=== PATIENT | female | born 1970 | race American Indian/Alaskan Native ===

== ENCOUNTER 2017-09-21 10:00 | Day surgery (SDC) | payer OTHER ==
[~2017-09-21 10:00] MED LIST: ADRENALIN IV ONE; LACTATED RINGERS 1,000 ML IV SCH; NACL 0.9% 1000 ML IV ONE; VERSED IV NR; XYLOCAINE 1% 20 mL INFILTRATI ONE
[2017-09-21] MEDS ORDERED: ADRENALIN ONE (10:43)
[2017-09-21] MEDS ORDERED: XYLOCAINE 1%/ EPI 1:100,000 INFILTRATI ONE (10:44)
[2017-09-21] MEDS ORDERED: NACL 0.9% 1000 ML 1,000 ML ONE ×2 (10:44→16:04)
[2017-09-21] MEDS ORDERED: ANCEF/STERILE WATER 2 GM/20 ML IV NR (11:00)
[2017-09-21] MEDS ORDERED: DILAUDID ONE (11:41)
[2017-09-21] MEDS ORDERED: SUBLIMAZE ONE (11:41)
[2017-09-21] MEDS ORDERED: DIPRIVAN 10 MG/ML IV ONE (11:41)
[2017-09-21] MEDS ORDERED: XYLOCAINE MPF 2% ONE (11:43)
[2017-09-21] MEDS ORDERED: ZEMURON IV ONE (11:44)
--- NOTE | 2017-09-21 12:00 | Anesthesia Consultation ---
Anesthesia Consult and Med Hx Date of service: 09/21/17 - Airway Anesthetic Teeth Evaluation: Good ROM Head & Neck: Adequate Mental/Hyoid Distance: Adequate Mallampati Class: Class I Intubation Access Assessment: Good - Pulmonary Exam CTA: Yes - Cardiac Exam Cardiac Exam: RRR - Pre-Operative Health Status ASA Pre-Surgery Classification: ASA1 Proposed Anesthetic Plan: General - Pre-Anesthesia Comment Pre-Anesthesia Comments: patient denies any medical problems. - Central Nervous System Hx Psychiatric Problems: No - Other Systems Hx Cancer: No
[2017-09-21] MEDS ORDERED: DEMEROL IV PRN (12:44)
[2017-09-21] MEDS ORDERED: TORADOL IV PRN (12:44)
[2017-09-21] MEDS ORDERED: ZOFRAN IV PRN ×2 (12:44→18:40)
[2017-09-21] MEDS ORDERED: DILAUDID IV PRN (12:44)
--- NOTE | 2017-09-21 12:44 | Anesthesia Consultation ---
Anesthesia Consult and Med Hx Date of service: 09/21/17 - Airway Anesthetic Teeth Evaluation: Good ROM Head & Neck: Adequate Mental/Hyoid Distance: Adequate Mallampati Class: Class I Intubation Access Assessment: Good - Pulmonary Exam CTA: Yes - Cardiac Exam Cardiac Exam: RRR - Pre-Operative Health Status ASA Pre-Surgery Classification: ASA1 Proposed Anesthetic Plan: General - Central Nervous System Hx Psychiatric Problems: No - Other Systems Hx Cancer: No
--- NOTE | 2017-09-21 12:44 | Anesthesia Day of Surgery ---
Anesthesia Day of Surgery - Day of Surgery Patient Examined: Yes Patient H&P Reviewed: Yes Patient is NPO: Yes
[2017-09-21] MEDS ORDERED: LACTATED RINGERS 1,000 ML IV SCH (13:00)
[2017-09-21] MEDS ORDERED: DECADRON ONE (13:26)
[2017-09-21] MEDS ORDERED: NEO SYNEPHRINE/NS Syringe(OR USE) IV ONE (13:44)
[2017-09-21] MEDS ORDERED: TRIPLE ANTIBIOTIC TP ONE (17:52)
[2017-09-21] MEDS ORDERED: ANCEF ONE (17:59)
[2017-09-21] MEDS ORDERED: ZOFRAN ONE (18:10)
[2017-09-21] MEDS: DILAUDID IV PRN ×3 (18:32→19:35)
[2017-09-21] MEDS ORDERED: NORCO 7.5/325 PO PRN (18:39)
--- NOTE | 2017-09-21 18:45 | Short Stay Summary ---
Short Stay Documentation Date of service: 09/21/17 - History H&P: obtained from office Past Medical History: No medical history Past Surgical History: Other (Face lift, Breast augmentation, Gender reassignment surgery) Social history: , lives with family - Allergies and Medications Current Medications: Allergies iodine Allergy (Verified 09/21/17 10:35) Itching PT STATES INTERNAL IODINE ONLY codeine Adverse Reaction (Verified 09/21/17 10:34) Itching Home Medications Medication Instructions Recorded Confirmed Last Taken Type No Known Home Medications [No 09/20/17 09/20/17 Unknown History Reported Home Medications] Active Medications Cefazolin Sodium (Ancef/Sterile Water 2 Gm/20 Ml) 2 gm IV PREOP NR Stop: 09/21/17 23:59 Hydromorphone HCl (Dilaudid) 0.5 mg IV Q10MIN PRN PRN Reason: Pain , Severe (7-10) Lactated Ringer's (Lactated Ringers) 1,000 mls @ 100 mls/hr IV DIRECT GIOVANI Last Admin: 09/21/17 11:05 Dose: 100 mls/hr Lactated Ringer's (Lactated Ringers) 1,000 mls @ 100 mls/hr IV DIRECT GIOVANI Midazolam HCl (Versed) 2 mg IV PREOP NR Stop: 09/21/17 23:59 Last Admin: 09/21/17 11:20 Dose: 2 mg - Physical exam General appearance: no acute distress HEENT: EOMI, Mucous membr. moist/pink, Other (s/p Face lift with chin implant. Swelling and ecchymosis accordingly.) Breasts: deferred Heart: Regular rate Gastrointestinal: normal Female Genitourinary: deferred Rectal Exam: deferred Extremities: no ischemia Neurological: Normal speech - Brief post op/procedure progress note Date of procedure: 09/21/17 Pre-op diagnosis: unacceptable cosmetic appearance Post-op diagnosis: same Anesthesia: GETA Findings: Significant scar tissue of the right side of the face. Surgeon: HOSSEIN BRAGA Estimated blood loss: 50-100ml Pathology: none Condition: stable - Hospital course Hospital course: Uneventful - Disposition Condition at discharge: Stable Disposition: DC-01 TO HOME OR SELFCARE - Discharge Diagnoses (1) Elective procedure for unacceptable cosmetic appearance Status: Acute Short Stay Discharge Plan Follow up with: [facility] [Other] - 7 Days
[2017-09-21 20:52] VITALS: BP 120/75
== END 2017-09-21 20:15 | disposition home or self-care (01) ==
LOC: OR 10:00
PROVIDERS: ATTEND Plastic Surgery
DX: Z41.1 Encounter for cosmetic surgery (principal); Z88.5 Allergy status to narcotic agent; Z91.041 Radiographic dye allergy status; Z79.899 Other long term (current) drug therapy; Z98.890 Other specified postprocedural states
CPT/HCPCS: 15828; J0171; J0690; J1100; J1170; J2250; J2370; J2405; J2704; J3010; J7030; J7120; A6250

== ENCOUNTER 2018-06-29 05:43 | Day surgery (SDC) | payer OTHER ==
[2018-06-29] MEDS ORDERED: LACTATED RINGERS 1,000 ML IV SCH (06:00)
[2018-06-29] MEDS ORDERED: ANCEF/STERILE WATER 2 GM/20 ML 2 GM/20 ML SYRINGE IV NR (06:00)
[2018-06-29] MEDS ORDERED: NACL 0.9% 1000 ML 4,000 ML ONE (06:36)
[2018-06-29] MEDS ORDERED: XYLOCAINE 1% 20 mL ONE (06:36)
[2018-06-29] MEDS ORDERED: XYLOCAINE 1%/ EPI 1:100,000 INFILTRATI ONE ×4 (06:37→09:03)
[2018-06-29] MEDS ORDERED: ADRENALINE P/F ONE (06:37)
[2018-06-29] MEDS ORDERED: DIPRIVAN 10 MG/ML IV ONE ×2 (07:12→07:56)
[2018-06-29] MEDS ORDERED: KETALAR ONE (07:12)
[2018-06-29] MEDS ORDERED: SUBLIMAZE ONE (07:12)
[2018-06-29] MEDS ORDERED: ZOFRAN ONE (07:22)
[2018-06-29] MEDS ORDERED: QUELICIN ONE (07:22)
[2018-06-29] MEDS ORDERED: DECADRON ONE (07:22)
[2018-06-29] MEDS ORDERED: ROBINUL ONE (07:22)
[2018-06-29] MEDS ORDERED: NEO SYNEPHRINE ONE (07:22)
[2018-06-29] MEDS ORDERED: ZEMURON IV ONE ×2 (07:22→12:59)
[2018-06-29] MEDS ORDERED: NEO SYNEPHRINE/NS Syringe(OR USE) IV ONE (07:23)
[2018-06-29] MEDS ORDERED: XYLOCAINE MPF 2% ONE (07:23)
[2018-06-29] MEDS ORDERED: NACL 0.9% 100 ML ONE (07:23)
[2018-06-29] MEDS ORDERED: LACTATED RINGERS 1,000 ML ONE (07:23)
[2018-06-29] MEDS ORDERED: VERSED IV NR (07:30)
[2018-06-29] MEDS ORDERED: ZOFRAN IV PRN ×2 (08:16→14:53)
[2018-06-29] MEDS ORDERED: SUBLIMAZE IV PRN (08:16)
--- NOTE | 2018-06-29 08:16 | Anesthesia Consultation ---
Anesthesia Consult and Med Hx Date of service: 06/29/18 - Airway Anesthetic Teeth Evaluation: Good ROM Head & Neck: Adequate Mallampati Class: Class II Intubation Access Assessment: Good - Pulmonary Exam CTA: Yes - Cardiac Exam Cardiac Exam: RRR - Pre-Operative Health Status ASA Pre-Surgery Classification: ASA2 Proposed Anesthetic Plan: General - Pulmonary Hx Smoking: No - Cardiovascular System Hx Hypertension: Yes (JAN 2018) - Central Nervous System Hx Psychiatric Problems: No - Gastrointestinal Hx Gastroesophageal Reflux Disease: No - Other Systems Hx Alcohol Use: No Hx Substance Use: No Hx Cancer: No
--- NOTE | 2018-06-29 08:16 | Anesthesia Day of Surgery ---
Anesthesia Day of Surgery - Day of Surgery Patient Examined: Yes Patient H&P Reviewed: Yes Patient is NPO: Yes
[2018-06-29] MEDS ORDERED: NACL 0.9% 1000 ML IR ONE (08:46)
[2018-06-29] MEDS ORDERED: ADRENALINE P/F IV ONE (08:48)
[2018-06-29] MEDS ORDERED: XYLOCAINE 1% 20 mL INFILTRATI ONE (08:49)
[2018-06-29] MEDS ORDERED: BACITRACIN ONE (10:29)
[2018-06-29] MEDS ORDERED: ANCEF ONE ×2 (10:29→11:08)
[2018-06-29] MEDS ORDERED: GENTAMICIN ONE (10:30)
[2018-06-29] MEDS ORDERED: NACL P/F VIAL (10 ML) 20 ML ONE (10:30)
[2018-06-29] MEDS ORDERED: BACITRACIN IR ONE (10:46)
[2018-06-29] MEDS ORDERED: ANCEF IV ONE (10:46)
[2018-06-29] MEDS ORDERED: GENTAMICIN IV ONE (10:46)
[2018-06-29] MEDS ORDERED: NACL 0.9% IR ONE (10:50)
[2018-06-29] MEDS ORDERED: TRIPLE ANTIBIOTIC TP ONE (14:35)
[2018-06-29] MEDS ORDERED: IBUPROFEN PO PRN (14:53)
[2018-06-29] MEDS ORDERED: ROBAXIN PO PRN (14:53)
[2018-06-29] MEDS ORDERED: NORCO 7.5/325 PO PRN (14:53)
[2018-06-29 16:21] VITALS: BP 104/55
--- NOTE | 2018-07-19 15:28 | Operative Report ---
Operative Report Operative Report: Plastic Surgery Operative Note Preoperative Diagnosis: Unacceptable cosmetic appearance Postoperative Diagnosis: Same Procedure: Lipsuction of the upper and lower abdomen, full waistline with fat grafting to the buttocks and hips. 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 She was interested in using her fat to improve buttock volume and shape but understands that in order to achieve maximum projection, an implant is recommended. We discussed liposuction with fat grafting to the buttocks and hips with the addition of an implant in great detail, including the risks of the procedure. The patient understood and accepted these risks and desired to proceed with surgery. Informed consent was obtained. Procedure: The patient was marked in preoperative holding and brought into the operating room where she was placed supine on the OR table. After induction of adequate general endotracheal anesthesia the abdomen was prepped with chlorhexidine and draped in the usual sterile surgical fashion. To begin, 1% lidocaine with epinephrine was infiltrated into the marked port entry sites. Using a No. 11 blade, cannula entry points were opened, and tumescent solution was infiltrated through these same incisions. A total of 2 L was infiltrated into the subcutaneous tissue of the abdomen. After allowing adequate time for epinephrine effect, power assisted liposuction was performed until the aspirate was bloody and a desirable contour was achieved. Fat was collected in a sterile canister and allowed to separate from fluid aspirate by gravity. Incisions were closed with 4-0 Monocryl suture. The patient was then placed in the prone posi tion and once again cannula entry sites for the posterior waist were injected with local anesthesia and opened with an 11 blade. 1 L of tumescent solution was infiltrated into the subcutaneous tissue of the posterior waist, and power assisted liposuction used to remove excess fat. Once satisfied with the contour we began the buttock implant portion of the procedure. Using a No. 15 herbert, entry incisions were made along the superior gluteal cleft. Beginnign with the right, using electrocautery and blunt dissection, an intramuscular pocket was created to accommodate the implant. Once satisfied with the pocket dimensions, the pocket was irrigated with triple antibiotic solution and using a Sanderson Funnel, a Size 3 Implantech round gluteal silicone implant was placed without difficulty. The muscle and fascia were closed over the implant using a 2-0 PDS suture. The exact same procedure was repeated on the left side. The central incision was then closed in 4 layers using a 2-0 PDS for fascia 3-0 Monoderm suture for subcutaneous and dermal closure. We then began the fat grafting portion of the procedure. Using blunt cannulas, fat was injected into the subcutaneous tissue of the buttocks and hips bilaterally until a desireable contour was achieved. A total of 900cc of pure fat was injected on the right, and 900cc was injected on the left. Once fat grafting was complete, 4-0 Monocryl was used to close all cannula entry points. All areas where incisions were placed were then dressed with abdominal pads and she was placed in a compression garment. Patient was then placed back in the supine position to be awakened from general anesthesia at which point it was noticed that she had right facial abrasions, which we believed to be caused by the tape used to secure her endotracheal tubing. The patient does not have a documented adhesive allergy. No other injuries were noted. Photo of the injury was taken and triple antibiotic ointment was placed on the abrasions. She was then transferred to the PACU in stable condition. Patient tolerated the procedure well. All sponge needle and instrument counts were correct at the end of the case.
== END 2018-06-29 05:44 | disposition home or self-care (01) ==
LOC: OR 05:43
PROVIDERS: ATTEND Plastic Surgery
DX: Z41.1 Encounter for cosmetic surgery (principal); I10 Essential (primary) hypertension; Z88.5 Allergy status to narcotic agent; Z91.041 Radiographic dye allergy status; Z79.899 Other long term (current) drug therapy; Z98.890 Other specified postprocedural states
CPT/HCPCS: 15877; 20926; 81025; J0171; J0330; J0690; J1100; J1580; J2250; J2370; J2405; J2704; J3010; J7030; J7120; A6250

== ENCOUNTER 2019-03-08 05:48 | Day surgery (SDC) | payer OTHER ==
[~2019-03-08 05:48] MED LIST changes: -ADRENALIN IV ONE; -NACL 0.9% 1000 ML IV ONE; -VERSED IV NR; -XYLOCAINE 1% 20 mL INFILTRATI ONE
[2019-03-08] MEDS ORDERED: MIDAZOLAM 2 MG/2 ML INJ IV NR (06:00)
[2019-03-08] MEDS ORDERED: BACTERIOSTATIC SODIUM CHLORIDE 0.9% 30 ML VIAL INFILTRATI ONE (06:18)
[2019-03-08] MEDS ORDERED: ceFAZolin/STERILE WATER 2 GM/20 ML SYRINGE IV NR (06:18)
--- NOTE | 2019-03-08 07:19 | Anesthesia Day of Surgery ---
Anesthesia Day of Surgery - Day of Surgery Patient Examined: Yes Patient H&P Reviewed: Yes Patient is NPO: Yes
--- NOTE | 2019-03-08 07:28 | Anesthesia Consultation ---
Anesthesia Consult and Med Hx Date of service: 03/08/19 - Airway Anesthetic Teeth Evaluation: Good ROM Head & Neck: Adequate Mental/Hyoid Distance: Adequate Mallampati Class: Class II Intubation Access Assessment: Good - Pre-Operative Health Status ASA Pre-Surgery Classification: ASA2 Proposed Anesthetic Plan: General - Pulmonary Hx Smoking: No - Cardiovascular System Hx Hypertension: Yes (JAN 2018) - Central Nervous System Hx Psychiatric Problems: No - Gastrointestinal Hx Gastroesophageal Reflux Disease: No - Other Systems Hx Alcohol Use: No Hx Substance Use: No Hx Cancer: No
[2019-03-08] MEDS ORDERED: dexAMETHasone 20 MG/5 ML VIAL ONE (07:34)
[2019-03-08] MEDS ORDERED: LIDOCAINE MPF (2%) 20 MG/1 ML VIAL 5 ML ONE (07:34)
[2019-03-08] MEDS ORDERED: ONDANSETRON 4 MG/2 ML INJ ONE (07:34)
[2019-03-08] MEDS ORDERED: fentaNYL 100 MCG/2 ML INJ ONE ×3 (07:34→11:02)
[2019-03-08] MEDS ORDERED: ROCURONIUM 50 MG/5 ML INJ IV ONE (07:34)
[2019-03-08] MEDS ORDERED: KETAMINE 500 MG/5 ML VIAL MDV ONE (07:35)
[2019-03-08] MEDS ORDERED: PROPOFOL 200 MG/20 ML VIAL IV ONE (07:35)
[2019-03-08] MEDS ORDERED: BUPIVACAINE-EPINEPHRINE/PF 0.25%-1:200,000 (30 ML) VIAL INFILTRATI ONE (07:58)
[2019-03-08] MEDS ORDERED: BUPIVACAINE-EPINEPHRINE/PF 0.25%-1:200,000 (10 ML) VIAL INFILTRATI ONE ×2 (08:31)
[2019-03-08] MEDS ORDERED: NEOMY 3.5 MG/BACIT 400 UNITS/POLY B 5000 UNITS OINT 15 GM TP ONE (10:40)
[2019-03-08] MEDS ORDERED: LACTATED RINGERS 1,000 ML ONE (10:59)
--- NOTE | 2019-03-08 11:57 | Operative Report ---
Operative Report Operative Report: Plastic Surgery Operative Note Preoperative Diagnosis: Unaccpetable cosmetic appearance Postoperative Diagnosis: Same Procedure: Forehead reduction; Pretrichial Brow Lift Anesthesia: General Surgeon: Jo Sequeira MD Honey Extractor: none EBL: 20cc Specimens: None Indications: This patient is a 48-year-old -Citizen Of [place] transgender female who has already had gender affirmation surgery and several feminization procedures. She presented with complaint of slightly receded hairline and masculine shape hairline and for head height. She was interested in forehead reduction surgery to reduce the size of her forehead and also lower her hairline so that she no longer needs to wear wigs. The benefits and the risks of this procedure were discussed in detail including but not limited to scarring, hair loss, hematoma, seroma, wound dehiscence, numbness, blood vessel and nerve damage, the need for further surgery. Patient understood and accepted these risks and desired to proceed with forehead reduction. Informed consent was obtained. Procedure: After review of pertinent history and physical exam findings patient was brought to the operating room and placed supine on the OR table. After induction of adequate general endotracheal anesthesia, the forehead was prepped and draped in the usual sterile surgical fashion. To begin, a marking pen was used to outline a pretrichial incision in a curvilinear fashion to mimic the natural hairline. Using a #15 blade, this incision was opened up to the level of the aponeurosis of the scalp followed by electrocautery for hemostasis. Dissection was carried forward to the level of the brow using a Metzenbaum scissors and blunt dissection. Dissection was carried caudad in the same plane to mobilize posterior scalp and allow lowering of the hairline anteriorly. The area was checked for hemostasis and then thoroughly irrigated with saline. We then checked our markings for excision which had been measured at 6.5 cm from the eyebrows as an ideal position for the anterior female hairline, to ensure a tension-free closure. Excess hairless forehead skin was sharply excised and we then began our closure in 2 layers with 3-0 Monocryl interrupted sutures followed by 3-0 (laterally) and 4-0 interrupted sutures for skin. The incision was then cleansed with saline and dressed with triple antibiotic ointment, gauze and an PUNEET wrap. Patient was then awakened from general anesthesia and transferred to recovery in stable condition. There were no complications. All sponge, needle and instrument counts were correct at the end of the case.
[2019-03-08 12:08] VITALS: BP 119/69
--- NOTE | 2019-03-08 15:11 | Post Anesthesia Evaluation ---
- Post Anesthesia Evaluation Patient Participated: Yes Airway Patent: Yes Stable Respiratory Function: Yes Nausea/Vomiting: No Temp > 96.8F: Yes Pain Manageable: Yes Adequeate Hydration: Yes Anesthesia Complications: No Block Receding Appropriately: Not Applicable Patient on Ventilator: No
== END 2019-03-08 12:35 | disposition home or self-care (01) ==
LOC: OR 05:48
PROVIDERS: ATTEND Plastic Surgery
DX: Z41.1 Encounter for cosmetic surgery (principal); I10 Essential (primary) hypertension; Z88.5 Allergy status to narcotic agent; Z91.041 Radiographic dye allergy status; Z98.890 Other specified postprocedural states
CPT/HCPCS: 15824; 82803; J0690; J1100; J2250; J2405; J2704; J3010; J7120; A6250